=== PATIENT | female | born 1930 | race Caucasian/White ===

== ENCOUNTER 2017-02-04 12:49 | Emergency (ER) | payer MEDICARE, OTHER ==
[~2017-02-04] VITALS: Ht 149.9 cm; Wt 56.3 kg
[~2017-02-04 12:49] MED LIST: ALEN70TA3 PO
[2017-02-04] MEDS ORDERED: ALBUTEROL SULFATE 2.5 MG/3 ML NPPB ONE (14:00)
[2017-02-04] MEDS ORDERED: SODIUM CHLORIDE 0.9% 1,000ML IVBOLUS ONE (14:00)
[2017-02-04 14:31] LABS: ASPARTATE AMINO TRANSFERASE 29 U/L (15-37); BLOOD UREA NITROGEN 8 mg/dL (7-18)
[2017-02-04 15:06] LABS: RAPID INFLUENZA A Negative (Negative); RAPID INFLUENZA B Negative (Negative)
[2017-02-04] MEDS ORDERED: ALBUTEROL SULFATE 2.5 MG/3 ML ONE (15:21)
[2017-02-04 16:55] VITALS: BP 139/67
== END 2017-02-04 16:58 | disposition home or self-care (01) ==
LOC: ED 16:52
DX: J20.8 Acute bronchitis due to other specified organisms (principal); B96.89 Other specified bacterial agents as the cause of diseases classified elsewhere; Z87.891 Personal history of nicotine dependence
CPT/HCPCS: 36415; 71010; 80053; 85025; 87400; 93005; 94640; 96360; 99285; J7030; J7613